=== PATIENT | male | born 1965 | race Caucasian/White ===

== ENCOUNTER 2024-11-13 07:25 | Outpatient (CLI) | payer OTHER, SELFPAY ==
--- NOTE | 2024-11-13 07:36 | USCV_ITS ---
Bang Bill Age: 59 Gender: M : 1965 Exam Date: 11/13/2024 07:55 Ordering Phys: Warren Kelley Technologist: [place] [facility] [place]: cp sob BP: 120 / 80 HR: 71 Rhythm: Sinus Technical Quality: Adequate MEASUREMENTS (Male / Female) Normal Values 2D ECHO LV Diastolic Diameter PLAX 2.6 cm 4.2 - 5.9 / 3.9 - 5.3 cm IVS Diastolic Thickness 1.5 cm 0.6 - 1.0 / 0.6 - 0.9 cm IVS Systolic Thickness 1.4 cm LVPW Diastolic Thickness 1.2 cm 0.6 - 1.0 / 0.6 - 0.9 cm LVPW Systolic Thickness 1.5 cm LVOT Diameter 2.0 cm LV Ejection Fraction 2D Teich 65.3 % LV Ejection Fraction MOD 4C 74.3 % LV Ejection Fraction MOD 2C 63.4 % LV Ejection Fraction 2C AL 62.6 % LA Diameter 2.7 cm RA Systolic Volume 4C AL 26.0 ml RA Systolic Volume 4C MOD 24.7 ml LA Sys Volume AL 36.9 cm cubed LA Sys Volume Index AL 21.7 cm cubed/m squared Aorta at Sinotubular Diameter 2.5 cm IVC Diameter 1.5 cm M-MODE LA Ao Ratio MM 1.1 AV Cusp Separation MM 2.2 cm DOPPLER LVOT Peak Velocity 111.0 cm/s AV Area Cont Eq vti 2.7 cm squared AV Area Cont Eq pk 3.4 cm squared MV Peak Velocity 77.0 cm/s MV Area PHT 5.6 cm squared Mitral E to A Ratio 1.1 TV Peak Velocity 142.5 cm/s TR Peak Velocity 157.0 cm/s TR Peak Gradient 9.9 mmHg TV Peak E Velocity 71.0 cm/s PV Peak Velocity 120.0 cm/s FINDINGS Left Ventricle Normal left ventricular size and systolic function, EF 63%. Mild concentric left trickle hypertrophy. No gross wall motion abnormalities.. Right Ventricle The right ventricle is normal in size and function. Right Atrium The right atrium is normal in size. Left Atrium The left atrium is normal in size. Mitral Valve No gross abnormalities Aortic Valve No gross abnormalities Tricuspid Valve No gross abnormalities Pulmonic Valve No gross abnormalities Pericardium Normal pericardium without effusion. Aorta Normal ascending aorta dimension. IVC Normal IVC dimension with <50% respiratory change of the inferior vena cava. CONCLUSIONS Normal left ventricular size and systolic function, EF 63%. Mild concentric left trickle hypertrophy. No gross wall motion abnormalities.. No gross valvular abnormalities Normal cardiac chamber sizes. There is no pericardial effusion. There are no intracardiac masses. Estimated right atrial pressure of [address] Marie Hartmann MD FACC (Electronically Signed) Final Date: 16 Nov 2024 09:44 S
== END 2024-11-13 07:26 | disposition home or self-care (01) ==
LOC: RAD 07:27
PROVIDERS: Visit Provider Chiropractor
DX: I25.9 Chronic ischemic heart disease, unspecified (principal); I51.7 Cardiomegaly; R93.1 Abnormal findings on diagnostic imaging of heart and coronary circulation
CPT/HCPCS: 93306